=== PATIENT | female | born 1965 | race Caucasian/White ===

== ENCOUNTER → 2023-09-12 08:32 | Outpatient (REF) | payer BC, SELFPAY ==
[2023-09-12 09:59] LABS: % Basophils 0.9 % (0-2); % Eosinophils 5.8 % (0-6); % Immature Granulocytes 0.2 % (0-0.5); % Monocytes 7.9 % (1.7-9.3); % Neutrophils 45.2 % (42.2-75.2); Absolute Basophils 0.1 10^3/uL (0-0.2); Absolute Eosinophils 0.3 10^3/uL (0-0.7); Absolute Lymphocytes 2.1 10^3/uL (1.2-3.4); Absolute Monocytes 0.4 10^3/uL (0.1-0.6); Absolute Neutrophils 2.4 10^3/uL (1.4-6.5); Hematocrit 37.4 % (37.0-47.0); Hemoglobin 12.8 g/dL (12.0-16.0); Mean Corp Hgb Conc. 34.2 g/dL (33.0-37.0); Mean Corpuscular Hgb 30.2 pg (27.0-31.0); Mean Corpuscular Volume 88.2 fL (81.0-99.0); Nucleated Red Blood Cells % 0 %; Platelet Count 247 10^3/uL (130-400); Red Blood Cell Count 4.24 10^6/uL (4.20-5.40); Red Cell Dist. Width 12.7 % (11.5-14.5); White Blood Cell Count 5.3 10^3/uL (4.8-10.8)
[2023-09-12 10:11] LABS: Erythrocyte Sed Rate 59 mm/hour (0-20)
[2023-09-12 10:15] LABS: Urine Albumin Negative (Neg - Trace); Urine Bilirubin Negative (Negative); Urine Character Clear (Clear); Urine Color Yellow; Urine Glucose Negative (Negative); Urine Ketone Negative (Negative); Urine Leukocyte Negative (Negative); Urine Nitrite Negative (Negative); Urine Occult Blood Negative (Negative); Urine Specific Gravity 1.005 (<1.030); Urine Urobilinogen Negative (Neg - 1+)
[2023-09-12 10:39] LABS: AST (SGOT) 29 U/L (14-36); Albumin 4.2 g/dl (3.5-5.0); Alkaline Phosphatase 58 U/L (38-126); Blood Urea Nitrogen 23 mg/dl (7-17); Calcium 9.8 mg/dl (8.4-10.2); Carbon Dioxide 30 mmol/L (22-30); Chloride 104 mmol/L (98-107); Glucose 75 mg/dl (70-99); HDL Cholesterol 67 mg/dl; LDL Cholesterol, Calculated 140 mg/dl; Potassium 4.5 mmol/L (3.5-5.1); Sodium 138 mmol/L (135-145); Total Bilirubin 0.5 mg/dl (0.2-1.3); Total Cholesterol 220 mg/dl (50-199); Total Protein 6.6 g/dl (6.3-8.2); Triglyceride 69 mg/dl (10-149); Uric Acid 3.2 mg/dl (2.5-6.2); Very Low Density Lipoprotein 13 mg/dl (0-30); eGFR > 60.00
[2023-09-12 10:44] LABS: CRP, Highly Sensitive 3.99 mg/L
[2023-09-12 10:48] LABS: ALT (SGPT) 26 U/L (0-35)
[2023-09-12 10:51] LABS: Free T4 1.14 ng/dl (0.78-2.19); Vitamin D, 25-OH*** 45.3 ng/mL (30-80)
[2023-09-12 11:05] LABS: TSH 0.97 uIU/ml (0.47-4.68)
[2023-09-12 11:08] LABS: Hepatitis B Surface Antigen Negative (Negative)
[2023-09-12 11:25] LABS: Hepatitis B Core Ab, Total Negative (Negative); Hepatitis B Surface Antibody Negative
[2023-09-15 02:28] LABS: Apolipoprotein B 109 mg/dL (60-117)
== END ==
LOC: REG 08:32
PROVIDERS: ATTENDING PHYSICIAN Family Medicine
DX: Z00.00 Encounter for general adult medical examination without abnormal findings (principal); E55.9 Vitamin D deficiency, unspecified; Z11.59 Encounter for screening for other viral diseases
CPT/HCPCS: 36415; 80053; 80061; 81003; 82172; 82306; 84439; 84443; 84550; 85025; 85652; 86141; 86704; 86706; 87340

== ENCOUNTER → 2024-09-17 06:42 | Outpatient (REF) | payer BC, SELFPAY ==
[2024-09-17 08:15] LABS: Urine Character Clear (Clear)
[2024-09-17 08:22] LABS: Hematocrit 40.5 % (37.0-47.0); Hemoglobin 13.1 g/dL (12.0-16.0); Mean Corp Hgb Conc. 32.3 g/dL (33.0-37.0); Mean Corpuscular Volume 92.0 fL (81.0-99.0); Nucleated Red Blood Cells % 0 %; Platelet Count 226 10^3/uL (130-400); Red Cell Dist. Width 13.0 % (11.5-14.5)
[2024-09-17 08:46] LABS: Urine Red Blood Cell 0-2 /HPF (0-2); Urine Urothelial Cell 0-2 /LPF (FEW)
[2024-09-17 08:59] LABS: ALT (SGPT) 15 U/L (0-35); AST (SGOT) 20 U/L (14-36); Albumin 4.4 g/dl (3.5-5.0); Alkaline Phosphatase 50 U/L (38-126); Blood Urea Nitrogen 21 mg/dl (7-17); Calcium 9.7 mg/dl (8.4-10.2); Carbon Dioxide 28 mmol/L (22-30); Chloride 108 mmol/L (98-107); Glucose 89 mg/dl (70-99); HDL Cholesterol 56 mg/dl; LDL Cholesterol, Calculated 142 mg/dl; Potassium 4.9 mmol/L (3.5-5.1); Sodium 142 mmol/L (135-145); Total Protein 6.8 g/dl (6.3-8.2); Uric Acid 3.5 mg/dl (2.5-6.2); Very Low Density Lipoprotein 12 mg/dl (0-30); eGFR > 60.00
[2024-09-17 11:48] LABS: Glycohemoglobin (HgbA1c) 5.4 % (4.0-5.6)
[2024-09-17 13:37] LABS: Vitamin D, 25-OH*** 50.9 ng/mL (30-80)
[2024-09-17 13:50] LABS: TSH 0.85 uIU/ml (0.47-4.68)
[2024-09-19 10:27] LABS: Lipoprotein a (Lp a) 15 mg/dL (<=29)
== END ==
LOC: REG 06:42
PROVIDERS: ATTENDING PHYSICIAN Family Medicine
DX: Z00.00 Encounter for general adult medical examination without abnormal findings (principal); E78.00 Pure hypercholesterolemia, unspecified; R73.9 Hyperglycemia, unspecified; E78.9 Disorder of lipoprotein metabolism, unspecified; E03.9 Hypothyroidism, unspecified; R94.5 Abnormal results of liver function studies; E55.9 Vitamin D deficiency, unspecified
CPT/HCPCS: 80053; 80061; 81003; 81015; 82306; 83036; 83695; 84439; 84443; 84550; 85025; 85652